=== PATIENT | female | born 1945 | race Caucasian/White ===

== ENCOUNTER 2024-07-16 12:06 | Outpatient (CLI) | payer MEDICARE, OTHER ==
[~2024-07-16 12:06] MED LIST: ACET-890 PO; ALEN10TA21 PO; ALLO100T PO; ASPI-1265 PO; ATEN-169 PO; BETA1TAB18 PO; CALC-467 PO; CYCL-394 PO; ESTR26GE TD; ESTR42.53 VG; HYDR12.522 PO; KRIL500C PO; MAGN250T28 PO; MULT-1085 PO; OMEP-84 PO
--- NOTE | 2024-07-16 21:38 | RADIOLOGY REPORT ---
Procedure: MR MRI LOWER EXTREMITY LEFT 07/16/2024 12:25 PM INDICATION: UNILATERAL PRIMARY OSTEOARTHRITIS,LEFT KNEE COMPARISON: None TECHNIQUE: MRI was performed utilizing multiple appropriate imaging planes and pulse sequences. FINDINGS: Medial meniscus: Unremarkable. Lateral meniscus: Partial maceration of the body segment. A horizontal tear is seen in the adjacent posterior horn extending through superior surface. Anterior cruciate ligament: Unremarkable. Posterior cruciate ligament: Unremarkable. Medial collateral ligament: Unremarkable. Lateral stabilizers: Unremarkable. Extensor mechanism: Unremarkable. Pes anserine Tendons: Unremarkable. Medial compartment: Unremarkable. Lateral compartment: Full-thickness loss of articular cartilage noted in the weight-bearing part of t he femoral condyle with underlying subchondral marrow edema cyst formation. Patellofemoral compartment: Unremarkable. Bones: No suspicious lesion. Joint Effusion: Small suprapatellar joint effusion. Popliteal fossa: Small Bhatia's cyst. Other: None. IMPRESSION: 1. Partial maceration of the body of the lateral meniscus with horizontal tear of the adjacent shop tech ior horn. 2. Full-thickness loss of articular cartilage in the weight-bearing part of the lateral femoral condy le with underlying degenerative subchondral cyst formation and marrow edema. 3. Small suprapatellar joint effusion. 4. Small bhatia's cyst.
== END 2024-07-16 23:59 | disposition home or self-care (01) ==
LOC: MRI02 12:06
PROVIDERS: ATTEND Physician Assistant
DX: S83.282A Other tear of lateral meniscus, current injury, left knee, initial encounter (principal); M17.12 Unilateral primary osteoarthritis, left knee; M25.462 Effusion, left knee; M71.22 Synovial cyst of popliteal space [Baker], left knee; R60.0 Localized edema; X58.XXXA Exposure to other specified factors, initial encounter; Y93.89 Activity, other specified; Y92.89 Other specified places as the place of occurrence of the external cause; Y99.8 Other external cause status
CPT/HCPCS: 73721